=== PATIENT | male | born 1970 | race Caucasian/White ===

== ENCOUNTER 2020-02-17 15:18 | Outpatient (CLI) | payer OTHER, SELFPAY ==
--- NOTE | ~2020-02-17 | CT_ITS ---
EXAMINATION: CT abdomen pelvis w con EXAM DATE: 02/17/2020 15:55 INDICATION: Unspecified left lower quadrant abdominal pain. TECHNIQUE: Spiral CT of the abdomen and pelvis was performed following intravenous injection of 100 m L Omnipaque 350. Axial, coronal and sagittal images were reviewed. The dose-length product (DLP) fo r this examination was 656.14 mGy-cm. The exposure was tailored according to patient size (auto mA e xposure control), and iterative reconstruction (ASIR) was used as additional dose reduction technique . There is no prior study for comparison. FINDINGS: There is inflammation along the descending colon, adjacent to a diverticulum. There are sma ll foci of extraluminal gas within this inflammation, microperforation. No gross free intraperitoneal gas. Small amount of uncontained fluid in the left colic gutter. No drainable abscess. Conservative treatment with antibiotics at this time should be initiated along with clinical and imaging follow-up . The liver, spleen, adrenal glands and pancreas are unremarkable. Gallbladder is unremarkable. No bi liary obstruction. Portal and splenic veins are patent. Kidneys enhance symmetrically. There is no hydronephrosis. The prostate is unremarkable. The The bladder is unremarkable. There is no retro peritoneal or pelvic lymphadenopathy. Small left inguinal fat-containing hernia. The appendix is normal. The stomach and small bowel are unremarkable. Mild scattered colonic diverti culosis. The heart is normal in size. There are no pericardial or pleural effusions. The lung bases are unremarkable. There are no osteoblastic or osteolytic lesions identified. IMPRESSION: Descending colonic diverticulitis complicated with microperforation. No organized abscess . Recommend antibiotics, clinical follow-up and obtaining follow-up imaging in 1-2 weeks. STAT hold and call. I confirmed with Kayla that patient is in waiting room. She is notifying [facility] doctor of results and patient will be given instructions at that time. Reviewed, dictated and finalized at location A. IMPRESSION: Descending colonic diverticulitis complicated with microperforation . No organized abscess. Recommend antibiotics, clinical follow-up and obtaining follow-up imaging in 1-2 weeks. STAT hold and call. I confirmed with Kayla that patient is in waiting room. S he is notifying ordering doctor of results and patient will be given instructio ns at that time.
== END 2020-02-17 15:19 | disposition home or self-care (01) ==
PROVIDERS: PCP Internal Medicine; Visit Provider Clinical Nurse Specialist
DX: R10.32 Left lower quadrant pain (principal); K57.92 Diverticulitis of intestine, part unspecified, without perforation or abscess without bleeding
CPT/HCPCS: 74177; Q9967

== ENCOUNTER 2020-02-17 16:48 | Inpatient (IN) | payer OTHER, SELFPAY ==
[2020-02-17 17:11] VITALS: BP 133/101; PULSE 96; RESP 18; TEMP 36.6; O2SAT 100
--- NOTE | 2020-02-17 17:39 | ED.ABDPAIN ---
HPI - Abdominal Pain General Chief Complaint: Abdominal Pain Stated Complaint: ABD pain/abnormal imaging Time Seen by Provider: 02/17/20 17:19 Source: patient Mode of arrival: ambulatory Limitations: no limitations History of Present Illness HPI narrative: 49 years old white male presents with left lower quadrant pain started 2 days ago. Worse laying down, probably better sitting or standing. Last p.o. intake was yesterday. Patient denies any fever, chills, nausea, vomiting, diarrhea, constipation, urinary symptoms CT scan of the abdomen and pelvis today at his family physician office showed descending colonic diverticulitis complicated with microperforation. No organized abscess. Patient does not take medications, history of smoking, quit 4 years ago, history of alcohol use weekly, also uses marijuana. History of cholecystectomy. Related Data Allergies Allergy/AdvReac Type Severity Reaction Status Date / Time No Known Allergies Allergy Unknown Verified 08/11/14 10:52 Review of Systems Review of Systems: Narrative: CONSTITUTIONAL: Denies fever, chills, or sweats. EYES: Denies visual changes, redness, or discharge. ENT: Denies rhinorrhea, congestion, sore throat, or otalgia. CARDIOVASCULAR: Denies chest pain, palpitations, or edema. RESPIRATORY: Denies cough or dyspnea. GASTROINTESTINAL: Left lower quadrant pain GENITOURINARY: Denies dysuria or hematuria. SKIN: Denies rash or itching. MUSCULOSKELETAL: Denies back pain, joint pain, or myalgia. NEUROLOGIC: Denies headache, numbness, or weakness. PSYCHIATRIC: Denies anxiety or depression. [facility] Surgical History Surgical History (Updated 05/04/19 @ 13:17 by Kelsea Adam CMA) Cholecystectomy planned Family History Family History (Updated 05/04/19 @ 13:18 by Kelsea Adam CMA) Father , age 65 [place] Acute myocardial infarction Mother Natural with proved cause Social History Social History (Updated 05/04/19 @ 13:21 by Kelsea Adam CMA) Smoking status: Former smoker Tobacco type: e-cigarettes/vaping Alcohol intake: current Drinks per week: 12 Substance use: never Substance use type: does not use Exam Narrative: Exam Narrative: General appearance: Well-developed, well-nourished Skin: Normal color Head: Normocephalic, nontraumatic Eyes: Clear conjunctiva ENT: Oropharynx normal, ears normal, nose normal Neck: Supple, nontender Chest and respiratory: Airway patent, no respiratory distress, no accessory muscle use Heart: Regular rate/rhythm Abdomen: Soft, moderate tenderness left lower quadrant, no organomegaly, quiet bowel sounds Vascular: Normal peripheral pulses, normal capillary refill. Musculoskeletal: Normal range of motion, nontender back Neurologic: Alert and oriented ?3, THERAPEUTIC ASSISTANT is normal as tested, no gross motor deficit Course Course Emergency Course: Stable, improving Vital Signs Vital signs: Vital Signs Temperature 36.6 C 02/17/20 17:11 Pulse Rate 96 02/17/20 17:11 Respiratory Rate 18 02/17/20 17:11 Blood Pressure 133/101 H 02/17/20 17:11 Pulse Oximetry 100 02/17/20 17:11 Temperature 36.6 C 02/17/20 17:11 Pulse Rate 96 02/17/20 17:11 Respiratory Rate 18 02/17/20 17:11 Blood Pressure 133/101 H 02/17/20 17:11 Pulse Oximetry 100 02/17/20 17:11 MDM - Abdominal Pain MDM Narrative Medical decision making narrative: Patient presents with left lower quadrant pain, CT scan showed acute diverticulitis with a microperforation. No organized abscess. IV fluids, IV Flagyl, IV Levaquin ordered. Surgical consult ordered. Critical Care Time Critical Care Time Critical Care Time: Yes Total Crit
[2020-02-17 17:42] LABS: Basophils Percent Auto 0.2 % (0.2-1.2); Hematocrit 50.3 % (42.0-52.0); Hemoglobin 17.8 g/dL (14.0-18.0); Immature Granulocyte Percent A 0.5 % (0-0.5); Lymphocytes Absolute Auto 1.51 K/mm3 (0.9-3.2); Lymphocytes Percent Auto 7.5 % (18.3-44.2); Mean Corpuscular HGB Conc 35.4 g/dl (32-36); Mean Corpuscular Hemoglobin 32.8 pg (26-34); Mean Corpuscular Volume 92.6 fl (80-100); Monocytes Absolute Auto 1.1 K/mm3 (0.1-0.6); Monocytes Percent Auto 5.7 % (2.6-8.5); Neutrophils Absolute Auto 17.4 K/mm3 (1.3-6.7); Neutrophils Percent Auto 86.1 % (45.5-73.1); Platelet Count Result 182 k/mm3 (150-375); Red Blood Count 5.43 M/mm3 (4.6-6.20); Red Cell Distribution Width 11.8 % (11.5-14.5); White Blood Count 20.2 K/mm3 (4.5-10.0)
[2020-02-17 17:54] LABS: Alanine Aminotransferase 35 U/L (4-50); Alkaline Phosphatase 66 U/L (38-126); Anion Gap 14 mmol/L (8-16); Aspartate Amino Transferase 31 U/L (17-59); Bilirubin,Total 2.1 mg/dL (0.2-1.3); Blood Urea Nitrogen 21 mg/dL (9-20); Calcium 10.2 mg/dL (8.4-10.2); Carbon Dioxide 28 mmol/L (22-30); Chloride 98 mmol/L (98-107); Estimated CRCL calculation 116 ml/min; Estimated Glomerular Filt Rate > 60; Glucose 111 mg/dL (75-110); Lipase 50 U/L (23-300); Potassium 4.1 mmol/L (3.4-5.0); Sodium 140 mmol/L (137-145)
[2020-02-17] MEDS: SODIUM CHLORIDE 0.9% IV 1,000 ML 999 ML IV CONT (18:14)
[2020-02-17] MEDS: metroNIDAZOLE 500 MG/ISO 100ML 500 MG/100 ML BAG 100 MG IVPB ×2 (18:15→23:42)
[2020-02-17 19:17] VITALS: BP 122/88; PULSE 93; RESP 18; O2SAT 97
[2020-02-17 19:20] VITALS: BP 122/88; PULSE 93; RESP 16; O2SAT 97
--- NOTE | 2020-02-17 19:32 | ADMGEN ---
This patient, David Paul, was admitted to Medical Room 341-01. Patient/family oriented to hospital policies and general routines including ID bracelet, bed and alarms, visiting hours, pain management, procedures, bathroom and other care routines, personal items, smoking policy, room service/diet, and visiting hours. Information on how to activate the Rapid Response Team has been discussed. Patient/Family are encouraged to report perceived risks to care and to ask questions if they do not understand what they are told or what they should do.
[2020-02-17 19:40] LABS: Add Urine Microscopic? YES; Appearance Urine Clear (Clear); Bilirubin Urine Negative (Negative); Blood Urine Negative (Negative); Color Urine Yellow (Yellow); Glucose Urine UA Negative (Negative); Ketones Urine Trace mg/dL (Negative); Leukocyte Esterase Ur Negative LEU/UL (Negative); Nitrate Urine Negative (Negative); Protein Urine 1+ mg/dL (Negative); RBC Urine 0-2 /hpf (0-2); Urobilinogen Urine Negative mg/dL (<2.0); WBC Urine 0-3 /hpf
[2020-02-17 19:41] VITALS: BMI 27.3
[2020-02-17 19:42] VITALS: BP 156/86; PULSE 98; RESP 14; TEMP 36.6; O2SAT 98
[2020-02-17 19:42] LABS: Specific Grav Ur > 1.060 (1.001-1.035)
[2020-02-17] MEDS: SODIUM CHLORIDE 0.9% IV 1,000 ML 125 ML IV CONT (20:18)
--- NOTE | 2020-02-17 23:09 | PM.IMHP ---
H&P: HPI History of Present Illness Date/Time: 02/17/20 23:09 Chief complaint: ACUTE DIVERTICULITIS W/MICROPERF Narrative: David Paul is a 49 year old male Who has no past medical history. Patient has not even had a colonoscopy or seen a GI doctor. The patient has had a cholecystectomy it looks like back in 2019. The patient went to his primary care office today with complaints of abdominal pain. He took a stool softener last night because he thought he was having some constipation. He had constant pain in left lower quad any did sleep at all last night. He can feel a swollen lump that feels like when he is laying down. He had dull constant pain that kept him awake all night. He was then sent to the emergency room. He has not had any blood in his stool. As stat CT of the abdomen and pelvis was ordered for the patient. Then he came to the Emergency room. He has had some left lower quadrant pain for 2 days. It is worse when lying down. He has not eaten at all since yesterday. He did not have any nausea or vomiting. The CTs scan shows descending colonic diverticulitis complicated with micro perforation. No organized abscess. Patient was started on Flagyl and Levaquin. He was given IV Tylenol which he stated did not her reaches pain. He is stating that is about a 7 now. Patient was admitted observation [facility] on 02/17/2020. Date of service is 02/17/2020. Review of Systems Review of Systems: All systems reviewed & are unremarkable except as noted in HPI and below Constitutional: Constitutional: Reports as per HPI and Reports no additional constitutional complaints Eyes: Eyes: Reports as per HPI and Reports no additional eye complaints ENT: Reports system reviewed and no additional complaints, except as documented and Reports Normal hearing present Cardiovascular: Cardiovascular: Reports no additional cardiovascular complaints Respiratory: Respiratory: Reports no additional respiratory complaints and Reports no additional respiratory complaints Gastrointestinal: Gastrointestinal: Reports as per HPI and Reports no additional gastrointestinal complaints Musculoskeletal: Musculoskeletal: Reports no additional musculoskeletal complaints Integumentary/Breasts: Skin/Breast: Reports system reviewed and no additional complaints, except as docu and Reports as per HPI Neurologic: Reports system reviewed and no additional complaints, except as documented, Reports as per HPI and Reports Normal hearing present Psychiatric: Psychiatric: Reports no additional psychiatric complaints and Reports as per HPI Endocrine: Endocrine: Reports no additional endocrine complaints Hematologic/Lymphatic: Hematologic/Lymphatic: Reports no additional hematologic/lymphatic complaints Allergic/Immunologic: Allergic/Immunologic: Reports no additional allergic/immunologic complaints [facility] Past Medical History Medical History Tobacco use Surgical History Surgical History (Updated 02/17/20 @ 23:15 by Jessi Valentine NP) H/O bone marrow donation Hx of cholecystectomy Family History Family History (Updated 02/17/20 @ 23:16 by Jessi Valentine NP) Father , age 65 [place] Acute myocardial infarction Mother Natural with proved cause Sibling Leukemia Social History Social History (Updated 02/17/20 @ 23:17 by Jessi Valentine NP) Social History: the patient works for [employer]. He is to his Sully who is a durable power prosecuting attorney for healthcare. He has 1 biological child who is healthy. he has 2 step children. He occasionally uses marijuana and alcohol. Smoking status: Former smoker Tobacco type: cigarettes and e-cigarettes/vaping Smoking end date: 05/05/15 Alcohol intake: current Drinks per week: 10 Substance use: never Substance use type: marijuana Living arrangements: with family Occupation/Education: occupation Gender identity (if verbalized by the patient): Male Sexua
[2020-02-17] MEDS: HYDROmorphone HCL INJ (*CRX) 1 MG/ML SYR 0.5 MG IV PUSH (23:38)
[2020-02-18] MEDS: HYDROmorphone HCL INJ (*CRX) 1 MG/ML SYR 0.5 MG IV PUSH ×7 (02:40→21:55)
[2020-02-18 03:09] VITALS: BP 136/78; PULSE 68; RESP 14; TEMP 36.9; O2SAT 97
[2020-02-18 05:25] VITALS: BP 116/73; PULSE 85; RESP 12; TEMP 36.5; O2SAT 97
[2020-02-18] MEDS: SODIUM CHLORIDE 0.9% IV 1,000 ML 125 ML IV CONT (05:33)
[2020-02-18] MEDS: metroNIDAZOLE 500 MG/ISO 100ML 500 MG/100 ML BAG 100 MG IVPB ×3 (05:38→17:43)
[2020-02-18 05:59] LABS: Basophils Percent Auto 0.2 % (0.2-1.2); Eosinophils Percent Auto 0.2 % (0-4.4); Hematocrit 45.2 % (42.0-52.0); Hemoglobin 15.7 g/dL (14.0-18.0); Immature Granulocyte Absolute 0.08 K/mm3 (0.00-0.031); Immature Granulocyte Percent A 0.6 % (0-0.5); Immature Platelet Fraction Pct 2.9 % (0.9-11.2); Lymphocytes Absolute Auto 0.88 K/mm3 (0.9-3.2); Lymphocytes Percent Auto 6.9 % (18.3-44.2); Mean Corpuscular HGB Conc 34.7 g/dl (32-36); Mean Corpuscular Hemoglobin 32.8 pg (26-34); Mean Corpuscular Volume 94.4 fl (80-100); Monocytes Absolute Auto 0.8 K/mm3 (0.1-0.6); Monocytes Percent Auto 6.3 % (2.6-8.5); Neutrophils Percent Auto 85.8 % (45.5-73.1); Platelet Count Result 147 k/mm3 (150-375); Red Blood Count 4.79 M/mm3 (4.6-6.20); Red Cell Distribution Width 11.8 % (11.5-14.5); White Blood Count 12.8 K/mm3 (4.5-10.0)
[2020-02-18 06:11] LABS: Lactic Acid Reflex 0.9 mmol/L (0.7-2.1)
[2020-02-18 06:53] LABS: Alanine Aminotransferase 62 U/L (4-50); Albumin Level 4.1 g/dL (3.5-5.1); Alkaline Phosphatase 52 U/L (38-126); Anion Gap 6 mmol/L (8-16); Aspartate Amino Transferase 66 U/L (17-59); Bilirubin,Total 2.1 mg/dL (0.2-1.3); Blood Urea Nitrogen 16 mg/dL (9-20); CRP 24.2 mg/dL (<1.0); Calcium 9.1 mg/dL (8.4-10.2); Carbon Dioxide 27 mmol/L (22-30); Chloride 104 mmol/L (98-107); Estimated CRCL calculation 133 ml/min; Estimated Glomerular Filt Rate > 60; Glucose 111 mg/dL (75-110); Magnesium 1.9 mg/dL (1.6-2.3); Potassium 4.3 mmol/L (3.4-5.0); Sodium 137 mmol/L (137-145)
--- NOTE | 2020-02-18 11:26 | PM.CNGS ---
Assessment and Plan Assessment and plan (1) Diverticulitis of colon with perforation: Code(s): K57.20 - Diverticulitis of large intestine with perforation and abscess without bleeding Status: Acute Assessment and Plan: long d/w pt re: conservative mgmt, cont abx, serial exams, will start clears (2) Tobacco use: Code(s): Z72.0 - Tobacco use Status: Chronic Assessment and Plan: d/w pt re: cessation History of Present Illness Consult details Consult date: 02/18/20 Reason for consult: abdominal pain Requesting physician: Mayank Valles MD Narrative: Pt is a 49 y/o M presenting to ED c/o severe LLQ abd pain over last few days. Pt reports pain started abruptly 2 nights ago, keeping him up all night. Pt reports pain localized in LLQ, constant and sharp. Pt reports pain is worse c movt. Pt denies previous episodes. Pt reports assoc anorexia, nausea, but no f/c. Review of Systems Constitutional: Constitutional: Reports anorexia, Denies chills, Reports fatigue, Denies fever(s), Denies headache(s), Denies lethargy, Reports malaise, Reports poor appetite, Reports weakness, Denies weight gain and Denies weight loss Eyes: Eyes: Reports no additional eye complaints ENT: Reports system reviewed and no additional complaints, except as documented and Reports Normal hearing present Cardiovascular: Cardiovascular: Reports no additional cardiovascular complaints Respiratory: Respiratory: Reports no additional respiratory complaints Gastrointestinal: Gastrointestinal: Reports abdominal pain, Denies belching, Denies bloating, Denies change in bowel habits, Denies constipation, Reports GI cramping, Denies diarrhea, Denies loose stools, Reports nausea and Denies vomiting Genitourinary: Genitourinary: Reports no additional male genitourinary complaints Musculoskeletal: Musculoskeletal: Reports no additional musculoskeletal complaints Integumentary/Breasts: Skin/Breast: Reports system reviewed and no additional complaints, except as docu Neurologic: Reports system reviewed and no additional complaints, except as documented Psychiatric: Psychiatric: Reports no additional psychiatric complaints Endocrine: Endocrine: Reports no additional endocrine complaints Hematologic/Lymphatic: Hematologic/Lymphatic: Reports no additional hematologic/lymphatic complaints Allergic/Immunologic: Allergic/Immunologic: Reports no additional allergic/immunologic complaints [facility] Past Medical History Medical History Tobacco use Surgical History Surgical History H/O bone marrow donation Hx of cholecystectomy Family History Family History Father , age 65 [place] Acute myocardial infarction Mother Natural with proved cause Sibling Leukemia Social History Social History Social History: the patient works for [employer]. He is to his Sully who is a durable power commercial attorney for healthcare. He has 1 biological child who is healthy. he has 2 step children. He occasionally uses marijuana and alcohol. Smoking status: Former smoker Tobacco type: cigarettes and e-cigarettes/vaping Smoking end date: 05/05/15 Alcohol intake: current Drinks per week: 10 Substance use: never Substance use type: marijuana Living arrangements: with family Occupation/Education: occupation Gender identity (if verbalized by the patient): Male Sexual Orientation (if Verbalized by the Patient): Straight or Heterosexual Spiritual care concerns: No Meds Home Medications and Allergies Home Medications Medication Instructions Recorded Confirmed Type No Home Medications 02/17/20 02/17/20 History Allergies Allergy/AdvReac Type Severity Reaction Status Date / Time No Known Allergies Allergy Unknown Verified 02/17/20 19:11
--- NOTE | 2020-02-18 12:03 | PM.IMPN ---
Progress Note: A&P Assessment and Plan (1) Acute diverticulitis: Code(s): K57.92 - Diverticulitis of intestine, part unspecified, without perforation or abscess without bleeding Status: Acute Assessment and Plan: Patient presented with significant RLQ abdominal pain. CT a/p showed descending colonic diverticulitis complicated with microperforation and no evidence organized abscess with recommendation for repeat imaging in 1-2 weeks. Endorses 8/10 abdominal pain and nausea with no vomiting. He had a formed stool yesterday morning. Leukocytosis is resolving. He is afebrile. General surgery is following and recommendations are appreciated. Advanced to clear liquid diet. Continue IV Flagyl and Levaquin Continue gentle IV fluids Analgesics available as needed (2) Tobacco use: Code(s): Z72.0 - Tobacco use Status: Chronic Assessment and Plan: Patient reports a history of smoking but reports he quit several years ago. He denies any current tobacco use to me but previous provider reported current E-cigarette/vaping use. Smoking cessation will be advised if patient is a current smoker. Subjective Date/time seen: 02/18/20 12:03 Interval history: Date of service: 02/18/2020 David Paul is a healthy 49-year-old male who is seen in follow-up for diverticulitis with microperforation. he reports that he is feeling like crap. He does not feel better or worse today. His pain is currently rated 8/10 throughout the entire abdomen but is especially painful in the right lower quadrant. He had some relief with IV pain medication but pain returned upon wearing off of medication. He is developing an appetite and would like to try clear liquids. He endorses chills but denies fevers. He feels nauseous but has not vomited. He endorses a mild dull headache. He had a formed bowel movement yesterday. He denies abdominal distension. He denies shortness of breath, cough, chest pain, or palpitations. Denies dysuria or hematuria. No bruising or bleeding. He is sleeping well. Review of Systems Review of Systems: Narrative: 12 systems reviewed with pertinent positives and negatives as per HPI. Exam Narrative: Exam Narrative: Mr. Paul is a well-nourished, well-appearing 49-year-old male who is lying supine in bed. He appears comfortable and is in NARD. HR 85, BP 116/77 RR 12, T 97.7?, 97% on Neuro: awake, alert and oriented x4, speech clear, no focal neuro deficits noted HEENMT: normocephalic, atraumatic, EOMI, sclerae anicteric, moist oral mucosa, tongue midline, nares patent Neck: supple, no lymphadenopathy Respiratory: clear to auscultation bilaterally, nonlabored breathing Cardio: regular rate, regular rhythm with S1-S2 Abdomen: nondistended, hypoactive bowel sounds, soft, diffusely tender to palpation especially at lateral RLQ, no rigidity or guarding, no rebound tenderness Extremities: no edema, erythema, cyanosis, clubbing, or tenderness to palpation, DP pulses 2+ bilaterally Skin: no rashes or lesions, warm and dry Psych: appropriate mood and affect, judgment and insight intact Objective Data Vital Signs Vital Signs: Vital Signs - 24 hr 02/17/20 17:11 02/17/20 19:17 02/17/20 19:20 Temperature 97.9 F Pulse Rate 96 93 93 Respiratory Rate 18 18 16 Blood Pressure 133/101 H 122/88 122/88 Pulse Oximetry 100 97 97 02/17/20 19:42 02/18/20 03:09 02/18/20 05:25 Temperature 97.9 F 98.4 F 97.7 F Pulse Rate 98 68 85 Respiratory Rate 14 14 12 Blood Pressure 156/86 H 136/78 116/73 Pulse Oximetry 98 97 97 Intake/Output Intake/Output: Intake & Output 02/15/20 02/16/20 02/17/20 02/18/20 23:59 23:59 23:59 23:59 Intake Total 1350 1200 Output Total 600 Balance 1350 600 Meds/Results Medications: Active Medications Generic Name Dose Route Start Last Admin Trade Name Freq PRN Reason Stop Dose Admin Hydromorphone HCl 0.5 mg 02/17/20 22:59 02/02
[2020-02-18 14:00] VITALS: BP 128/80; PULSE 99; RESP 18; TEMP 36.9; O2SAT 96
[2020-02-18 21:41] VITALS: BP 128/81; PULSE 79; RESP 18; TEMP 37.2; O2SAT 97
[2020-02-18] MEDS: SODIUM CHLORIDE 0.9% IV 1,000 ML 85 ML IV CONT (21:54)
[2020-02-19] MEDS: metroNIDAZOLE 500 MG/ISO 100ML 500 MG/100 ML BAG 100 MG IVPB ×4 (00:54→17:11)
[2020-02-19] MEDS: HYDROmorphone HCL INJ (*CRX) 1 MG/ML SYR 0.5 MG IV PUSH ×3 (00:55→07:05)
[2020-02-19 06:14] LABS: Basophils Percent Auto 0.2 % (0.2-1.2); Eosinophils Percent Auto 0.2 % (0-4.4); Hematocrit 42.5 % (42.0-52.0); Hemoglobin 14.9 g/dL (14.0-18.0); Immature Granulocyte Absolute 0.07 K/mm3 (0.00-0.031); Immature Granulocyte Percent A 0.6 % (0-0.5); Lymphocytes Absolute Auto 0.94 K/mm3 (0.9-3.2); Lymphocytes Percent Auto 7.4 % (18.3-44.2); Mean Corpuscular HGB Conc 35.1 g/dl (32-36); Mean Corpuscular Volume 91.4 fl (80-100); Mean Platelet Volume 9.9 fl (7.4-10.4); Monocytes Percent Auto 7.5 % (2.6-8.5); Neutrophils Absolute Auto 10.7 K/mm3 (1.3-6.7); Neutrophils Percent Auto 84.1 % (45.5-73.1); Platelet Count Result 180 k/mm3 (150-375); Red Blood Count 4.65 M/mm3 (4.6-6.20); Red Cell Distribution Width 11.5 % (11.5-14.5); White Blood Count 12.7 K/mm3 (4.5-10.0)
[2020-02-19 06:25] VITALS: BP 117/78; PULSE 90; RESP 18; TEMP 37.1; O2SAT 95
[2020-02-19 06:36] LABS: Anion Gap 10 mmol/L (8-16); Blood Urea Nitrogen 14 mg/dL (9-20); Calcium 9.1 mg/dL (8.4-10.2); Carbon Dioxide 26 mmol/L (22-30); Chloride 103 mmol/L (98-107); Estimated CRCL calculation 157 ml/min; Estimated Glomerular Filt Rate > 60; Glucose 110 mg/dL (75-110); Potassium 3.8 mmol/L (3.4-5.0); Sodium 139 mmol/L (137-145)
[2020-02-19 08:00] VITALS: PULSE 90; RESP 18; O2SAT 95
--- NOTE | 2020-02-19 10:15 | PM.PNGS ---
Progress Note: A&P Assessment and Plan (1) Diverticulitis of colon with perforation: Code(s): K57.20 - Diverticulitis of large intestine with perforation and abscess without bleeding Status: Acute Assessment and Plan: Advance to full liquids Continue IV levaquin and flagyl Possibly home tomorrow if continuing to improve (2) Tobacco use: Code(s): Z72.0 - Tobacco use Status: Chronic Subjective Subjective Date/Time Seen: 02/19/20 10:15 Had some increased pain with 1st BM, but he had another BM just recently and pain has improved significantly. No fevers. Tolerating clears. Exam GI: GI Palp: Yes Soft to palpation and No Tenderness to palpation present (GI) Percussion: Yes normal to percussion Auscultation: normal bowel sounds Objective Data Vital Signs Vital Signs: Vital Signs - 24 hr 02/18/20 14:00 02/18/20 21:41 02/19/20 06:25 Temperature 36.9 C 37.2 C 37.1 C Pulse Rate 99 79 90 Respiratory Rate 18 18 18 Blood Pressure 128/80 128/81 117/78 Pulse Oximetry 96 97 95 Intake/Output Intake/Output: Intake & Output 02/16/20 02/17/20 02/18/20 02/19/20 23:59 23:59 23:59 23:59 Intake Total 1350 4470 690 Output Total 3200 800 Balance 1350 1270 -110 Meds/Results Medications: Active Medications Generic Name Dose Route Start Last Admin Trade Name Freq PRN Reason Stop Dose Admin Acetaminophen 650 mg 02/19/20 08:50 Acetaminophen 325 Mg Tablet PO Q4H PRN Pain 1-3 Hydrocodone Bitart/Acetaminophen 1 tab 02/19/20 08:49 Hydrocodone/Acetaminophen (*Crx) 5-325 Mg Tablet PO Q4H PRN Pain Rated 4-6 Hydromorphone HCl 0.5 mg 02/19/20 08:50 Hydromorphone Hcl Inj (*Crx) 1 Mg/Ml Syr IV PUSH Q4H PRN Pain Rated 7-10 Sodium Chloride 1,000 mls @ 85 mls/hr 02/17/20 17:55 02/18/20 21:54 Normal Saline Iv IV CONT 85 mls/hr .[id number] SUZIE Administration Metronidazole 500 mg in 100 mls @ 100 mls/hr 02/18/20 00:00 02/19/20 07:05 Flagyl 500 Mg/Iso Soln 100 Ml IVPB 100 mls/hr Q6HR SUZIE Administration Levofloxacin/Dextrose 750 mg in 150 mls @ 100 mls/hr 02/18/20 19:00 02/18/20 20:27 Levaquin 750 Mg/D5w 150 Ml IVPB Infused Q24H SUZIE Infusion Labs Labs: Laboratory Results - last 24 hr 02/19/20 02/19/20 05:45 05:45 WBC 12.7 H RBC 4.65 Hgb 14.9 Hct 42.5 MCV 91.4 MCH 32.0 MCHC 35.1 RDW 11.5 Plt Count 180 MPV 9.9 Immature Gran % (Auto) 0.6 H Neut % (Auto) 84.1 H Lymph % (Auto) 7.4 L Weak[place] % (Auto) 7.5 Eos % (Auto) 0.2 Baso % (Auto) 0.2 Lymph # (Auto) 0.94 [place] # (Auto) 1.0 H Eos # (Auto) 0.0 Baso # (Auto) 0.0 Abs Immat Gran (auto) 0.07 H Absolute Neuts (auto) 10.7 H Absolute Nucleated RBC 0.0 Nucleated RBC % 0.0 Sodium 139 Potassium 3.8 Chloride 103 Carbon Dioxide 26 Anion Gap 10 BUN 14 Creatinine 0.50 L Estim Creat Clear Calc 157 Estimated GFR > 60 Glucose 110 Calcium 9.1 Quality VTE Prophylaxis VTE prophylaxis: mechanical ordered
[2020-02-19] MEDS: HYDROcodone/acetaminophen (*CRX) 5-325 MG TABLET 1 TAB PO ×3 (10:51→20:05)
--- NOTE | 2020-02-19 12:02 | PM.IMPN ---
Progress Note: A&P Assessment and Plan (1) Acute diverticulitis: Code(s): K57.92 - Diverticulitis of intestine, part unspecified, without perforation or abscess without bleeding Status: Acute Assessment and Plan: Patient presented with significant RLQ abdominal pain. CT a/p showed descending colonic diverticulitis complicated with microperforation and no evidence organized abscess with recommendation for repeat imaging in 1-2 weeks. abdominal pain is improved today, currently rated as 4/10. Two formed stools last night. Tolerating clear liquid diet. Leukocytosis is resolving. He is afebrile. General surgery is following and recommendations are appreciated. Advanced to full liquid diet. Continue IV Flagyl and Levaquin IV fluids discontinued as patient is tolerating oral intake. Analgesics available as needed Subjective Date/time seen: 02/19/20 12:02 Interval history: Date of service: 02/19/2020 David Paul is a healthy 49-year-old male who is seen in follow-up for diverticulitis with microperforation. he is feeling much better today. His pain improving. Currently rating at 4/10 in the right lower quadrant. He is able to tolerate clear liquids. He had 2 bowel movements since yesterday. No blood or mucus in stools. Nausea is improving and still no episodes of emesis. No fever or chills. Denies headache, confusion, cough, shortness of breath, chest pain, palpitations, dizziness, lightheadedness, dysuria, hematuria, bleeding, weakness, or fatigue. He slept well last night. Review of Systems Review of Systems: Narrative: Twelve systems reviewed with pertinent positives and negatives as per HPI. Exam Narrative: Exam Narrative: Mr. Paul is a well-nourished, well-appearing 49-year-old male who is lying supine in bed. He appears comfortable and is in NARD. HR 90, BP 117/78, RR 18, T 98.8?, 95% on room air Neuro: awake, alert and oriented x4, speech clear, no focal neuro deficits noted HEENMT: normocephalic, atraumatic, EOMI, sclerae anicteric, moist oral mucosa, tongue midline, nares patent Neck: supple, no lymphadenopathy Respiratory: clear to auscultation bilaterally, nonlabored breathing Cardio: regular rate, regular rhythm with S1-S2 Abdomen: nondistended, normoactive bowel sounds, soft, mildly tender to palpation of lateral RLQ, no rigidity or guarding, no rebound tenderness Extremities: no edema, erythema, cyanosis, clubbing, or tenderness to palpation, DP pulses 2+ bilaterally Skin: no rashes or lesions, warm and dry Psych: appropriate mood and affect, judgment and insight intact Objective Data Vital Signs Vital Signs: Vital Signs - 24 hr 02/18/20 14:00 02/18/20 21:41 02/19/20 06:25 Temperature 98.5 F 98.9 F 98.8 F Pulse Rate 99 79 90 Respiratory Rate 18 18 18 Blood Pressure 128/80 128/81 117/78 Pulse Oximetry 96 97 95 Intake/Output Intake/Output: Intake & Output 02/16/20 02/17/20 02/18/20 02/19/20 23:59 23:59 23:59 23:59 Intake Total 1350 4470 1768 Output Total 3200 800 Balance 1350 1270 968 Meds/Results Medications: Active Medications Generic Name Dose Route Start Last Admin Trade Name Freq PRN Reason Stop Dose Admin Acetaminophen 650 mg 02/19/20 08:50 Acetaminophen 325 Mg Tablet PO Q4H PRN Pain 1-3 Hydrocodone Bitart/Acetaminophen 1 tab 02/19/20 08:49 02/19/20 10:51 Hydrocodone/Acetaminophen (*Crx) 5-325 Mg Tablet PO 1 tab Q4H PRN Administration Pain Rated 4-6 Hydromorphone HCl 0.5 mg 02/19/20 08:50 Hydromorphone Hcl Inj (*Crx) 1 Mg/Ml Syr IV PUSH Q4H PRN Pain Rated 7-10 Metronidazole 500 mg in 100 mls @ 100 mls/hr 02/18/20 00:00 02/19/20 11:45 Flagyl 500 Mg/Iso Soln 100 Ml IVPB 100 mls/hr Q6HR SUZIE Administration Levofloxacin/Dextrose 750 mg in 150 mls @ 100 mls/hr 02/18/20 19:00 02/18/20 20:27 Levaquin 750 Mg/D5w 150 Ml IVPB Infused Q24H [facility]fusion [facility]
[2020-02-19 13:51] VITALS: BP 136/79; PULSE 81; RESP 12; TEMP 36.3; O2SAT 98
[2020-02-19 21:58] VITALS: BP 124/75; PULSE 70; RESP 16; TEMP 36.1; O2SAT 98
[2020-02-20] MEDS: HYDROcodone/acetaminophen (*CRX) 5-325 MG TABLET 1 TAB PO ×3 (00:47→10:24)
[2020-02-20] MEDS: metroNIDAZOLE 500 MG/ISO 100ML 500 MG/100 ML BAG 100 MG IVPB ×2 (00:48→06:50)
[2020-02-20 04:33] VITALS: BP 122/86; PULSE 75; RESP 16; TEMP 36.4; O2SAT 97
[2020-02-20 05:57] LABS: Hematocrit 44.6 % (42.0-52.0); Hemoglobin 15.6 g/dL (14.0-18.0); Mean Corpuscular Hemoglobin 32.9 pg (26-34); Mean Corpuscular Volume 94.1 fl (80-100); Mean Platelet Volume 9.9 fl (7.4-10.4); Platelet Count Result 207 k/mm3 (150-375); Red Blood Count 4.74 M/mm3 (4.6-6.20); Red Cell Distribution Width 11.6 % (11.5-14.5); White Blood Count 9.8 K/mm3 (4.5-10.0)
[2020-02-20 06:34] LABS: Anion Gap 11 mmol/L (8-16); Blood Urea Nitrogen 15 mg/dL (9-20); CRP 21.8 mg/dL (<1.0); Calcium 9.6 mg/dL (8.4-10.2); Carbon Dioxide 30 mmol/L (22-30); Chloride 101 mmol/L (98-107); Estimated CRCL calculation 133 ml/min; Estimated Glomerular Filt Rate > 60; Glucose 111 mg/dL (75-110); Potassium 3.9 mmol/L (3.4-5.0); Sodium 142 mmol/L (137-145)
[2020-02-20 08:00] VITALS: PULSE 75; RESP 16; O2SAT 97
--- NOTE | 2020-02-20 09:56 | P.PNGS_ITS ---
Progress Note: A&P Assessment and Plan (1) Diverticulitis of colon with perforation: Code(s): K57.20 - Diverticulitis of large intestine with perforation and abscess without bleeding Status: Acute Assessment and Plan: * Feeling better. OK to discharge home today. * Low fiber diet x 2 more weeks * Recommend Levaquin and Flagyl for 10 more days * Recommend eventual colonoscopy once recovered from this episode (2) Tobacco use: Code(s): Z72.0 - Tobacco use Status: Chronic Subjective Subjective Date/Time Seen: 02/20/20 09:56 Feeling better. Pain improving. No fevers. Tolerating diet. Exam GI: Inspection: non-distended GI Palp: Yes Soft to palpation and Yes Tenderness to palpation present (GI) (minimal LLQ) Auscultation: normal bowel sounds Objective Data Vital Signs Vital Signs: Vital Signs - 24 hr 02/19/20 13:51 02/19/20 21:58 02/20/20 04:33 Temperature 36.3 C L 36.1 C L 36.4 C Pulse Rate 81 70 75 Respiratory Rate 12 16 16 Blood Pressure 136/79 124/75 122/86 Pulse Oximetry 98 98 97 Intake/Output Intake/Output: Intake & Output 02/17/20 02/18/20 02/19/20 02/20/20 23:59 23:59 23:59 23:59 Intake Total 1350 4470 3338 400 Output Total 3200 1200 Balance 1350 1270 2138 400 Meds/Results Medications: Active Medications Generic Name Dose Route Start Last Admin Trade Name Freq PRN Reason Stop Dose Admin Acetaminophen 650 mg 02/19/20 08:50 Acetaminophen 325 Mg Tablet PO Q4H PRN Pain 1-3 Hydrocodone Bitart/Acetaminophen 1 tab 02/19/20 08:49 02/20/20 04:33 Hydrocodone/Acetaminophen (*Crx) 5-325 Mg Tablet PO 1 tab Q4H PRN Administration Pain Rated 4-6 Hydromorphone HCl 0.5 mg 02/19/20 08:50 Hydromorphone Hcl Inj (*Crx) 1 Mg/Ml Syr IV PUSH Q4H PRN Pain Rated 7-10 Metronidazole 500 mg in 100 mls @ 100 mls/hr 02/18/20 00:00 02/20/20 06:50 Flagyl 500 Mg/Iso Soln 100 Ml IVPB 100 mls/hr Q6HR USZIE Administration Levofloxacin/Dextrose 750 mg in 150 mls @ 100 mls/hr 02/18/20 19:00 02/19/20 19:44 Levaquin 750 Mg/D5w 150 Ml IVPB Infused Q24H [facility] Infusion [facility] Labs: Laboratory Results - last 24 hr 02/20/20 02/20/20 05:43 05:43 WBC 9.8 RBC 4.74 Hgb 15.6 Hct 44.6 MCV 94.1 MCH 32.9 MCHC 35.0 RDW 11.6 Plt Count 207 MPV 9.9 Sodium 142 Potassium 3.9 Chloride 101 Carbon Dioxide 30 Anion Gap 11 BUN 15 Creatinine 0.60 L Estim Creat Clear Calc 133 Estimated GFR > 60 Glucose 111 H Calcium 9.6 C-Reactive Protein 21.8 H Quality VTE Prophylaxis VTE prophylaxis: mechanical ordered
--- NOTE | 2020-02-20 15:06 | PM.DS ---
DS: Admitting Diagnosis Admitting Diagnosis Admitting Diagnosis: ACUTE DIVERTICULITIS W/MICROPERF DS: Discharge Diagnosis Discharge Diagnosis (1) Acute diverticulitis: Code(s): K57.92 - Diverticulitis of intestine, part unspecified, without perforation or abscess without bleeding Status: Acute DS: Summary Hospital Course Reason for hospitalization: Diverticulitis Hospital Course: Date of admission: 02/17/2020 Date of discharge: 02/20/2020 David Paul is a previously healthy 49 year old former smoker who presented to the emergency department on 02/17/2020 with complaints of abdominal pain that he described as constant LLQ pain for about 2 days. At presentation, VSS, afebrile, WBC 20.2, and electrolytes stable, CT a/p showed descending colonic diverticulitis complicated with microperforation and no evidence of organized abscess with recommendation for repeat imaging in 1-2 weeks. He was admitted to the hospitalist service and was seen in consultation by general surgery. He was treated with IV Levaquin and IV Flagyl and given IV fluids. Initially NPO and was able to advance to low fiber diet. Abdominal pain resolved and he was having formed bowel movements. He remained afebrile and leukocytosis resolved. He will continue low fiber diet for 2 weeks. He will need to follow up Dr. Santamaria in 2 weeks. He will also need outpatient colonoscopy upon resolution of infection. He should follow up with his PCP in 1-2 weeks. Continue Levaquin and Flagyl for 10 days. He began feeling much better and requested discharge home. Given his overall improvement, he was determined to no longer require inpatient care. We discussed worrisome signs and symptoms for which to return and he was educated on his medications. He was discharged in hemodynamically stable condition on 02/20/2020. Status at Discharge Functional status at discharge: independent ambulation Overall status at discharge: patient is progressing back to baseline Time Spent with Patient Time attestation: Total time spent providing and/or coordinating discharge services:45 minutes Time spent: Greater than 30 minutes Exam Narrative: Exam Narrative: Mr. Paul is a well-nourished, well-appearing 49-year-old male who is lying supine in bed. He appears comfortable and is in NARD. HR 75, BP 122/86, RR 16, T 97.6?, 97% on room air Neuro: awake, alert and oriented x4, speech clear, no focal neuro deficits noted HEENMT: normocephalic, atraumatic, EOMI, sclerae anicteric, moist oral mucosa, tongue midline, nares patent Neck: supple, no lymphadenopathy Respiratory: clear to auscultation bilaterally, nonlabored breathing Cardio: regular rate, regular rhythm with S1-S2 Abdomen: nondistended, normoactive bowel sounds, soft, nontender to palpation, no rigidity or guarding, no rebound tenderness Extremities: no edema, erythema, cyanosis, clubbing, or tenderness to palpation, DP pulses 2+ bilaterally Skin: no rashes or lesions, warm and dry Psych: appropriate mood and affect, judgment and insight intact DS: Data Data Completed and Pending Labs on day of discharge: Labs from last 24 hours 02/20/20 02/20/20 05:43 05:43 WBC 9.8 RBC 4.74 Hgb 15.6 Hct 44.6 MCV 94.1 MCH 32.9 MCHC 35.0 RDW 11.6 Plt Count 207 MPV 9.9 Sodium 142 Potassium 3.9 Chloride 101 Carbon Dioxide 30 Anion Gap 11 BUN 15 Creatinine 0.60 L Estim Creat Clear Calc 133 Estimated GFR > 60 Glucose 111 H Calcium 9.6 C-Reactive Protein 21.8 H Discharge Plan Discharge Attending physician on discharge: Elizabeth Mendoza V. Consulting providers: Nathalia Santamaria Discharging Clinician: Cathie Mondragon Patient Disposition: Home, Self-Care Activity: as tolerated Diet: low fiber Discharge Instructions: Hospitalist discharge instructions: You have been hospitalized for diverticulitis, which is an infection in the pouches of your intestine. You have been
== END 2020-02-20 11:35 | disposition home or self-care (01) | DRG 392 ==
LOC: ANHED 17:46 → ANH3MED 18:37
PROVIDERS: Emergency Medicine; Nurse Practitioner; Physician Assistant; Admitting Provider Internal Medicine; Emergency Provider Emergency Medicine; PCP Internal Medicine; Visit Provider Internal Medicine
DX: K57.20 Diverticulitis of large intestine with perforation and abscess without bleeding (principal); Z90.49 Acquired absence of other specified parts of digestive tract; Z87.891 Personal history of nicotine dependence
CPT/HCPCS: 36415; 80048; 80053; 81001; 83605; 83690; 83735; 84443; 85025; 85027; 85055; 86140; 96361; 96365; 96366; 96367; 96375; 96376; 99285; A9270; G0378; J0131; J1170; J1956; J7030

== ENCOUNTER 2020-05-29 15:11 | Outpatient (CLI) | payer OTHER, SELFPAY ==
--- NOTE | ~2020-05-29 | US_ITS ---
EXAMINATION: US soft tissue groin LT DATE: 05/29/2020 15:35 INDICATION: Lower abdominal and left pubic pain. TECHNIQUE: Multiple grayscale and Doppler ultrasound images of the left inguinal region of concern we re obtained. COMPARISON: CT dated 02/17/2020 FINDINGS: Small fat-containing left inguinal hernia which increases slightly in size with Valsalva. No evident herniated bowel. This appears similar in size and location to the small fat-containing direct inguina l hernia seen on prior CT. Left common femoral artery and vein appear patent with normal directional flow. Adjacent small normal-sized left inguinal lymph node with central fatty hilum. IMPRESSION: 1. Small fat-containing direct left inguinal hernia. Reviewed, dictated and finalized at location B. [facility] [employer] [facility]
== END 2020-05-29 15:12 | disposition home or self-care (01) ==
LOC: ANHIMG 15:12
PROVIDERS: PCP Internal Medicine; Visit Provider Nurse Practitioner
DX: R10.30 Lower abdominal pain, unspecified (principal); K40.90 Unilateral inguinal hernia, without obstruction or gangrene, not specified as recurrent
CPT/HCPCS: 76882

== ENCOUNTER → 2020-08-22 03:22 | Outpatient (CLI) | payer OTHER, SELFPAY ==
[2020-08-22 20:31] LABS: SARS-CoV-2 RNA PCR Negative
== END ==
PROVIDERS: PCP Internal Medicine; Visit Provider Internal Medicine Gastroenterology
DX: Z01.812 Encounter for preprocedural laboratory examination (principal); Z20.822 Contact with and (suspected) exposure to COVID-19
CPT/HCPCS: C9803; U0003; U0005

== ENCOUNTER 2020-08-25 01:54 | Day surgery (SDC) | payer OTHER, SELFPAY ==
[2020-08-21 13:34] VITALS: BMI 26.7
[2020-08-25 08:31] VITALS: BMI 27.3
[2020-08-25] MEDS: LACTATED RINGERS 1,000 ML 150 ML IV CONT (08:57)
--- NOTE | 2020-08-25 09:06 | P.PNAN_ITS ---
Anes - Initial Pre Proc Eval Procedure: Operation Date: 08/25/20 09:45 Proposed Procedures p Colonoscopy - Akin San MD Date/Time: 08/25/20 09:06 Surgeon: Akin San MD Pre Op Diagnosis: diverticulosis Patient Data Age: 49 Gender: M Height: 5 ft 11 in Weight: 89 kg Allergies Allergy/AdvReac Type Severity Reaction Status Date / Time No Known Allergies Allergy Unknown Verified 08/25/20 08:29 Home Medications Medication Instructions Recorded Confirmed Type sildenafil 100 mg tablet 100 mg PO DAILY PRN #10 tablet 05/23/20 08/25/20 Rx Patient hx anesthesia problems: none Family hx anesthesia problems: none PMFSH Past Medical History Medical History Tobacco use Surgical History Surgical History H/O bone marrow donation Hx of cholecystectomy Family History Family History Father , age 65 [place] Acute myocardial infarction Mother Natural with proved cause Sibling Leukemia Social History Social History Social History: the patient works for [employer]. He is to his Sully who is a durable power workers compensation attorney for healthcare. He has 1 biological child who is healthy. he has 2 step children. He occasionally uses marijuana and alcohol. Smoking status: Current some day smoker Tobacco type: cigarettes and e-cigarettes/vaping Smoking end date: 05/05/15 Alcohol intake: current Drinks per week: 10 Substance use: never Substance use type: does not use Living arrangements: with family Gender identity (if verbalized by the patient): Male Sexual Orientation (if Verbalized by the Patient): Straight or Heterosexual Spiritual care concerns: No Anes - Eval Final PreProcedure Day of Procedure 08/25/20 09:06 Patient weight: overweight Heart: regular rate and rhythm Lungs: clear to auscultation Airway: Mallampati scale class II Neurological: alert and oriented Last oral intake: >/= 8 hours ASA classification: II Emergent: no Anesthetic plan: proceed Anesthesia type and monitoring: general GIVS and standard monitoring Informed Consent: The patient's anesthetic plan and its attendant risks and benefits were discussed with the patient/family/POA. Questions were solicited and answers provided to the satisfaction of the patient/family/POA.
--- NOTE | 2020-08-25 09:28 | PM.HPGS ---
History of Present Illness History of Present Illness Consent: Risks, benefits, and alternatives have been discussed and questions answered. Patient agrees to proceed with procedure. Chief complaint: diverticulosis Narrative: David Paul is a 49 year old male who had first episode of diverticulitis in descending colon complicated with microperforation few months ago, never had colonoscopy. Now asymptomatic. Review of Systems Constitutional: Constitutional: Denies headache(s) and Denies weakness Eyes: Eyes: Denies blurry vision ENT: Reports Normal hearing present, Denies headache(s) and Denies neck pain Cardiovascular: Cardiovascular: Denies chest pain and Denies dyspnea Respiratory: Respiratory: Denies dyspnea Gastrointestinal: Gastrointestinal: Reports no additional gastrointestinal complaints Genitourinary: Genitourinary: Denies dysuria Musculoskeletal: Musculoskeletal: Denies neck pain Integumentary/Breasts: Skin/Breast: Denies dry skin Neurologic: Reports Normal hearing present, Denies headache(s) and Denies weakness Psychiatric: Psychiatric: Denies anxiety Endocrine: Endocrine: Denies change in body appearance Hematologic/Lymphatic: Hematologic/Lymphatic: Denies easy bleeding Allergic/Immunologic: Allergic/Immunologic: Denies urticaria PMFSH Past Medical History Medical History Tobacco use Surgical History Surgical History H/O bone marrow donation Hx of cholecystectomy Family History Family History Father , age 65 [place] Acute myocardial infarction Mother Natural with proved cause Sibling Leukemia Social History Social History Social History: the patient works for [employer]. He is to his Sully who is a durable power deputy commonwealth's attorney for healthcare. He has 1 biological child who is healthy. he has 2 step children. He occasionally uses marijuana and alcohol. Smoking status: Current some day smoker Tobacco type: cigarettes and e-cigarettes/vaping Smoking end date: 05/05/15 Alcohol intake: current Drinks per week: 10 Substance use: never Substance use type: does not use Living arrangements: with family Gender identity (if verbalized by the patient): Male Sexual Orientation (if Verbalized by the Patient): Straight or Heterosexual Spiritual care concerns: No Meds Home Medications and Allergies Home Medications Medication Instructions Recorded Confirmed Type sildenafil 100 mg tablet 100 mg PO DAILY PRN #10 tablet 05/23/20 08/25/20 Rx Allergies Allergy/AdvReac Type Severity Reaction Status Date / Time No Known Allergies Allergy Unknown Verified 08/25/20 08:29 Exam Const: General: comfortable and no acute distress HENMT: General nose exam: Normal nares present Eyes: General: appearance normal, both eyes and all related structures Neck: Neck: no JVD Resp: Auscultation: clear to auscultation bilaterally Cardio: Rate: regular rate Rhythm: regular rhythm GI: Inspection: non-distended GI Palp: Yes Soft to palpation Skin: General skin exam: normal color Neuro: General: gait normal Speech: normal speech Extrem: General: normal to inspection Psych: Mental Status: mental status grossly normal Assessment and Plan Assessment and plan (1) Acute diverticulitis: Code(s): K57.92 - Diverticulitis of intestine, part unspecified, without perforation or abscess without bleeding Status: Acute Assessment and Plan: resolved but never had colonoscopy
[2020-08-25 09:57] VITALS: BP 114/79; PULSE 79; RESP 22; O2SAT 100
[2020-08-25 10:07] VITALS: BP 102/76; PULSE 88; RESP 22; O2SAT 98
== END 2020-08-25 10:38 | disposition home or self-care (01) ==
PROVIDERS: PCP Internal Medicine; Visit Provider Internal Medicine Gastroenterology
PROC: 0DJD8ZZ Inspection of Lower Intestinal Tract, Via Natural or Artificial Opening Endoscopic (ICD-10-PCS; CPT 45378; principal; 2020-08-25 09:45)
DX: K57.32 Diverticulitis of large intestine without perforation or abscess without bleeding (principal); K64.8 Other hemorrhoids; F17.210 Nicotine dependence, cigarettes, uncomplicated
CPT/HCPCS: 45378; C9803; J2704; J7120; U0003; U0005